=== PATIENT | female | born 1940 | race Caucasian/White ===

== ENCOUNTER 2017-06-09 10:40 | Inpatient (IN) | payer OTHER, MEDICAID ==
--- NOTE | 2017-06-09 11:41 | DR.GENAD ---
HPI - PCP Primary Care Physician: YUAN - Complaint/Symptoms Chief Complaint Doctors Comments: dyspnea this am. Home health found low oxygen sats 70s. Feels better now sats 80s Chief Complaint:: HOSPICE WAS SEEING PATIENT CHECKING VITAL SIGNS AND OXYGEN LEVEL WAS IN THE 70'S TOLD PATIENT TO COME TO ER. Self Treatment fo Chief Complaint: TURN THE OXYGEN UP TO 5 LPM FROM 3 LPM. HAD PAIN MEDS FOR HURTING. MORPHINE, NITRO, AND HYDROCODONE 10/325 MG - Nurses notes reviewed Nurses Notes Review: Yes - Source History Provided: Patient - Mode of Arrival Mode of Arrival: Wheelchair - Timing Onset of Chief Complaint: 06/09/17 Came on: Gradually - Duration Duration: Constant Duration: Hours - Location Location: lungs - Severity Severity: Moderate - Modifying Factors Improves:: oxygen - Associated Signs and Symptoms Associated Signs and Symptoms: cough - Other History Other History: Hospice for pulmonary fibrosis PMH - PMH Past Medical History: Yes Past Medical History: CHF, Coronary Artery Disease, Diabetes, Dyslipidemia, Hypothyroidism, [place] Past Medical History Comment: PULMONARY FIBROSIS Past Surgical History: Yes Surgical History: Angioplasty/Stents, Carotid Endarterectomy, Hysterectomy Past Surgical History Comment: DEFIBALATOR - Family History History of Family Medical Conditions: Yes Family Medical History: Diabetes Mellitus, [place], Heart Failure - Social History Does any household member use tobacco: No Alcohol Use: None Do you use any recreational Drugs:: No Lives With: Family Lives Where: Home - infectious screening In the last 2 months have you had wt loss of >10#?: NO Have you had fever, night sweats or hemotysis?: No Have you traveled outside the country in the last 6 months?: No Isolation: Standard ROS - Review of Systems Constitutional: No Symptoms Reported Eyes: No Symptoms Reported ENTM: No Symptoms Reported Respiratoy: Non-Productive Cough, Short of Breath Cardiovascular: No Symptoms Reported Gastrointestinal/Abdominal: No Symptoms Reported Genitourinary: No Symptoms Reported Neurological: No Symptoms Reported Musculoskeletal: No Symptoms Reported Integumentary: No Symptoms Reported Hematologic/Lymphatic: No Symptoms Reported Endocrine: No Symptoms Reported Psychiatric: No Symptoms Reported All Other Systems: Reviewed and Negative PE - Vital Signs Vitals: Temperature 98.3 F Pulse Rate 114 Respiratory Rate 16 Blood Pressure [Right Calf] 80/60 Blood Pressure [Right Arm] 144/74 Blood Pressure [Left Arm] 114/58 Blood Pressure 129/70 O2 Sat by Pulse Oximetry 84 - General Limitations: No Limitations General Appearance: Alert, In No Apparent Distress - Head Head Exam: Normal Inspection - Eyes Eye exam: Normal Appearance, EOMI. negative: Scleral Icterus, Conjunctival Injection - ENT ENT Exam: Normal Exam - Neck Neck Exam: Normal Inspection, Full ROM, Trachea Midline - Chest Chest Inspection: Normal Inspection - Respiratory Respiratory Exam: negative: Accessory Muscle Use, Prolonged Expiratory Phase Respiratory Exam: Bilateral Crackles - Cardiovascular Cardiovascular Exam: Tachycardia - Abdominal Exam Abdominal Exam: Normal Inspection, Normal Bowel Sounds, Soft - Extremities Extremities Exam: Normal Inspection, Full ROM - Back Back Exam: Normal Inspection - Neurologic Neurological Exam: Alert, Oriented X3, CN II-XII Intact - Psychiatric Psychiatric Exam: Normal Mood - Skin Skin Exam: Intact, Normal Color Course - Consultation Called: 13:00 Call Returned: 13:10 Consultation Comments: case discussed with DR. Yuan garcia in observation, give morphine ROR - Labs Reviewed Result Diagrams: 06/09/17 12:00 06/09/17 12:00 Laboratory: WBC 8.9 X10^3/uL (3.6-10.0) 06/09/17 12:00 RBC 4.46 X10^6/uL (3.5-5.4) 06/09/17 12:00 Hgb 12.3 g/dL (12.0-16.0) 06/09/17 12:00 Hct 38.2 % (36.0-47.0) 06/09/17 12:00 MCV 85.6 fL (80.0-100.0) 06/09/17 12:00 MCH 27.7 pg (27.0-34.0) 06/09/17 12:00 MCHC 32.3 g/dL (33.0-35.0) L 06/09/17 12:00 RDW 14.7 % (11.6-16.5) 06/09/17 12:00 Plt Count 178 X10^3/uL (150.0-450.0) 06/09/17 12:00 MPV 10.2 fL (7.4-11.0) 06/09/17 12:00 Neut % 72.9 % (42.0-75.0) 06/09/17 12:00 Lymph % 15.6 % (21.0-51.0) L 06/09/17 12:00 [place] % 9.2 % (0.0-13.0) 06/09/17 12:00 Eos % 1.5 % (0.9-2.9) 06/09/17 12:00 Baso % 0.8 % (0.2-1.0) 06/09/17 12:00 Neut # 6.5 x10^3/uL (2.2-4.8) H 06/09/17 12:00 Lymph # 1.4 X10^3/uL (1.3-2.9) 06/09/17 12:00 [place] # 0.8 x10^3/uL (0.3-0.8) 06/09/17 12:00 Eos # 0.1 x10^3/uL (0.0-0.2) 06/09/17 12:00 Baso # 0.1 X10^3/uL (0.0-0.1) 06/09/17 12:00 Absolute Nucleated RBC 0.0 /100WBC 06/09/17 12:00 INR Target Range - 06/09/17 12:00 INR 1.05 (0.8-1.3) 06/09/17 12:00 D-Dimer 1040 ng/mL (0-400) H* 06/09/17 12:00 Sodium 142 mmol/L (136-145) 06/09/17 12:00 Corrected Sodium 146 mmol/L (136-145) H 06/09/17 12:00 Potassium 4.0 mmol/L (3.5-5.1) 06/09/17 12:00 Chloride 101 mmol/L (98-107) 06/09/17 12:00 Carbon Dioxide 37.0 mmol/L (21-32) H 06/09/17 12:00 BUN 28 mg/dL (7-18) H 06/09/17 12:00 Creatinine 1.41 mg/dL (0.55-1.02) H 06/09/17 12:00 Est GFR (MDRD) Af Amer 47 (>60) L 06/09/17 12:00 Est GFR (MDRD) Non-Af 38 (>60) L 06/09/17 12:00 Glucose 246 mg/dL (65-99) H 06/09/17 12:00 Calcium 8.7 mg/dL (8.5-10.1) 06/09/17 12:00 Corrected Calcium 9.3 mg/dL (8.5-10.1) 06/09/17 12:00 Total Bilirubin 0.50 mg/dL (0.2-1.0) 06/09/17 12:00 AST 32 Units/L (15-37) 06/09/17 12:00 ALT 24 Units/L (12-78) 06/09/17 12:00 Alkaline Phosphatase 57 Units/L (46-116) 06/09/17 12:00 Creatine Kinase 28 Units/L (26-192) 06/09/17 12:00 CK-MB (CK-2) 1.3 ng/mL (0-4.0) 06/09/17 12:00 CK/CKMB % Calc 4.6 % (<4) 06/09/17 12:00 Troponin I 0.04 ng/mL (0-1.5) 06/09/17 12:00 B-Natriuretic Peptide 684 pg/mL (0-79) H* 06/09/17 12:00 Total Protein 7.4 g/dL (6.4-8.2) 06/09/17 12:00 Albumin 3.2 g/dL (3.4-5.0) L 06/09/17 12:00 Globulin 4.2 g/dL (2.5-4.5) 06/09/17 12:00 Albumin/Globulin Ratio 0.8 Ratio (1.1-2.1) L 06/09/17 12:00 - XRAY XRAY Interpreted by: Radiologist XRAY Findings: chest: increased interstitial markings - EKG Rate: 88 [place]: LAD Rhythm: Paced - Discharge Plan Condition: Stable - Follow ups/Referrals Follow ups/Referrals: Edwin Thompson [Primary Care Provider] - 3 days - Instructions
[2017-06-09] MEDS ORDERED: DUONEB 0.5 MG/3 MG NEB ONE (11:43)
[2017-06-09 12:18] LABS: BASOPHILS # (AUTO) 0.1 X10^3/uL (0.0-0.1); BASOPHILS % (AUTO) 0.8 % (0.2-1.0); EOSINOPHILS # (AUTO) 0.1 x10^3/uL (0.0-0.2); EOSINOPHILS % (AUTO) 1.5 % (0.9-2.9); HEMATOCRIT 38.2 % (36.0-47.0); HEMOGLOBIN 12.3 g/dL (12.0-16.0); LYMPHOCYTES # (AUTO) 1.4 X10^3/uL (1.3-2.9); LYMPHOCYTES % (AUTO) 15.6 % (21.0-51.0); MEAN CORPUSCULAR HEMOGLOBIN 27.7 pg (27.0-34.0); MEAN CORPUSCULAR HGB CONC 32.3 g/dL (33.0-35.0); MEAN CORPUSCULAR VOLUME 85.6 fL (80.0-100.0); MEAN PLATELET VOLUME 10.2 fL (7.4-11.0); MONOCYTES # (AUTO) 0.8 x10^3/uL (0.3-0.8); MONOCYTES % (AUTO) 9.2 % (0.0-13.0); NEUTROPHILS # (AUTO) 6.5 x10^3/uL (2.2-4.8); NEUTROPHILS % (AUTO) 72.9 % (42.0-75.0); PLATELET COUNT 178 X10^3/uL (150.0-450.0); RED BLOOD COUNT 4.46 X10^6/uL (3.5-5.4); RED CELL DISTRIBUTION WIDTH 14.7 % (11.6-16.5); WHITE BLOOD COUNT 8.9 X10^3/uL (3.6-10.0)
[2017-06-09 12:29] LABS: CALCIUM 8.7 mg/dL (8.5-10.1); CREATININE 1.41 mg/dL (0.55-1.02); TROPONIN I 0.04 ng/mL (0-1.5)
--- NOTE | 2017-06-09 12:29 | RAD ---
HISTORY: Shortness of breath Study: Two views of the chest Comparison: January 01, 2017 Findings: The trachea is midline. The cardiac silhouette is enlarged. Increased interstitial markings and mi ld bronchial wall thickening are noted.. IMPRESSION: 1. Cardiomegaly. 2. Increased interstitial markings and mild bronchial wall thickening. Reported By:
[2017-06-09 12:34] LABS: ALBUMIN 3.2 g/dL (3.4-5.0); CKMB % 4.6 % (<4); COR CA(FOR HYPOALB) 9.3 mg/dL (8.5-10.1); CREATINE KINASE MB 1.3 ng/mL (0-4.0); TOTAL PROTEIN 7.4 g/dL (6.4-8.2)
[2017-06-09] MEDS ORDERED: NS 500 ML IV 500 ML IV ONE (12:36)
[2017-06-09] MEDS ORDERED: SOLU-Medrol 125 MG VIAL IVP ONE ×2 (12:42→12:57)
[2017-06-09] MEDS ORDERED: NS 1000 ML 1,000 ML ONE (12:42)
[2017-06-09] MEDS ORDERED: SOLU-Medrol 125 MG VIAL ONE (12:44)
[2017-06-09] MEDS ORDERED: ULTRAM PO PRN (16:05)
[2017-06-09] MEDS: PLAVIX PO SCH (16:44)
[2017-06-09] MEDS: ASPIRIN EC 81 MG PO SCH (16:44)
[2017-06-09] MEDS: K-DUR TAB 20 MEQ PO SCH ×2 (16:44→20:19)
[2017-06-09] MEDS: JANUVIA PO SCH (16:44)
[2017-06-09] MEDS: PREDNISONE TAB 10 MG PO SCH (16:45)
[2017-06-09] MEDS: TRICOR TAB 145 MG PO SCH (16:45)
[2017-06-09] MEDS: HumuLIN R SUBCUT PRN ×2 (16:56→20:19)
[2017-06-09] MEDS ORDERED: PROTONIX TAB 40 MG PO SCH (17:00)
[2017-06-09] MEDS: LASIX PO SCH (20:17)
[2017-06-09] MEDS: NORCO 10/325 TAB PO PRN (20:18)
[2017-06-09] MEDS: SNACK - Diabetic Appropriate PO SCH (20:20)
[2017-06-09] MEDS: MORPHINE SULFATE INJ 2 MG IVP PRN (22:17)
[2017-06-10 05:27] LABS: BASOPHILS % (AUTO) 0.2 % (0.2-1.0); EOSINOPHILS % (AUTO) 0.2 % (0.9-2.9); HEMATOCRIT 35.9 % (36.0-47.0); HEMOGLOBIN 11.6 g/dL (12.0-16.0); LYMPHOCYTES # (AUTO) 2.2 X10^3/uL (1.3-2.9); LYMPHOCYTES % (AUTO) 25.3 % (21.0-51.0); MEAN CORPUSCULAR HEMOGLOBIN 27.8 pg (27.0-34.0); MEAN CORPUSCULAR HGB CONC 32.2 g/dL (33.0-35.0); MEAN CORPUSCULAR VOLUME 86.3 fL (80.0-100.0); MEAN PLATELET VOLUME 10.7 fL (7.4-11.0); MONOCYTES # (AUTO) 1.2 x10^3/uL (0.3-0.8); MONOCYTES % (AUTO) 13.5 % (0.0-13.0); NEUTROPHILS # (AUTO) 5.2 x10^3/uL (2.2-4.8); NEUTROPHILS % (AUTO) 60.8 % (42.0-75.0); PLATELET COUNT 161 X10^3/uL (150.0-450.0); RED BLOOD COUNT 4.16 X10^6/uL (3.5-5.4); RED CELL DISTRIBUTION WIDTH 14.2 % (11.6-16.5); WHITE BLOOD COUNT 8.5 X10^3/uL (3.6-10.0)
[2017-06-10 05:32] LABS: CALCIUM 8.5 mg/dL (8.5-10.1); CARBON DIOXIDE 35.3 mmol/L (21-32); COR CA(FOR HYPOALB) 9.3 mg/dL (8.5-10.1); CREATININE 1.16 mg/dL (0.55-1.02)
[2017-06-10] MEDS: NORCO 10/325 TAB PO PRN ×2 (06:09→18:05)
--- NOTE | 2017-06-10 06:23 | RAD ---
HISTORY: Shortness of breath Study: Chest one view Comparison: June 09, 2017 Findings: There is a pacemaker present in the left axilla. The patient is rotated to the left. The heart is en larged. The brit[place] are prominent and indistinct and the interstitium remains prominent peer E this is suggestive of congestive heart fat in the form of interstitial edema. No acute alveolar infiltrates, alveolar edema, or pleural effusions are identified. The bony thorax is unremarkable. IMPRESSION: Cardiomegaly with congestive heart failure in the form of interstitial edema somewhat more prominent than on the prior examination Reported By:
[2017-06-10 07:25] VITALS: BMI 33.4
[2017-06-10] MEDS: ASPIRIN EC 81 MG PO SCH (08:47)
[2017-06-10] MEDS: PROTONIX TAB 40 MG PO SCH (08:47)
[2017-06-10] MEDS: LASIX PO SCH (08:47)
[2017-06-10] MEDS: TRICOR TAB 145 MG PO SCH (08:47)
[2017-06-10] MEDS: K-DUR TAB 20 MEQ PO SCH ×2 (08:47→21:35)
[2017-06-10] MEDS: JANUVIA PO SCH (08:48)
[2017-06-10] MEDS: PREDNISONE TAB 10 MG PO SCH (08:48)
[2017-06-10] MEDS: PLAVIX PO SCH (08:49)
[2017-06-10] MEDS ORDERED: LASIX IVP SCH (10:00)
--- NOTE | 2017-06-10 11:36 | DR.H&P ---
H&P - History & Physical for Day of: H&P Date: 06/09/17 - Chief Complaint Chief Complaint: Shortness of breath - Allergies Allergies/Adverse Reactions: Allergies Allergy/AdvReac Type Severity Reaction Status Date / Time acetaminophen Allergy Verified 06/09/17 17:19 [From Darvocet-N] celecoxib [From Celebrex] Allergy Verified 06/09/17 17:20 eptifibatide Allergy Verified 06/09/17 17:19 [From Integrilin] propoxyphene Allergy Verified 06/09/17 17:19 [From Darvocet-N] simvastatin [From Zocor] Allergy Verified 06/09/17 17:20 - History of Present Illness History of Present Illness: Ms. Muller is a 76 year old patient of ours who presented to the emergency room with complaints of shortness of breath. Family reports that the hospice nurse was at their home visiting patient and checked her oxygen saturation, which was noted to be in the 70s, despite being on home oxygen at 3LPM. After increasing oxygen to 5LPM, saturations only increased to the 80s. Patient is currently being treated under hospice for pulmonary fibrosis. Patients baseline oxygen saturation is usually between 92-95% on 4LPM nasal cannula. Patient reports that she is having neck pain and that she has been taking Morphine, Nitro and Hydrocodone for pain, with no improvement in symptoms. Associated symptoms include non-productive cough, shortness of breath, and pain. Bilateral wheezing and crackles are noted in bilateral lung borjas on auscultation. On arrival to er, vitals were 98.3, 114, 16, 84%NC 5LPM , 129/70. Abnormal Labs include MCHC 32.3, Lymph% 15.6, Neut# 6.5, Ddimer 1040, Corrected Sodium 146, Carbon Dioxide 37.0, BUN 28, Creatinine 1.41, GFR(AA) 47, GFR(non) 38, Glucose 246, BNP 684, Albumin 3.2, A/G Ratio 0.8. D-dimer is noted to be critically high at 1040. BNP is noted to be critically high at 684. Chest xray reports cardiomegaly, Increased interstitial markings and mild bronchial wall thickening. EKG reported Atrial sensed ventricular paced rhythm with heart rate of 88. We admitted patient for further treatment and evaluation. She was started on [place] 10/325mg 1tab po q4hour PRN pain, Aspirin 81mg po daily, Plavix 75mg po daily, Tricor 145mg po daily, Humulin R sliding scale ACHS PRN hyperglycemia, OTBS ACHS, Morphine Sulfate 1-2mg IV q2hour PRN severe pain, KDur 20meq po BID, Prednisone 10mg po daily, Januvia 100mg po daily, Ultram 50mg po q6hour PRN moderate pain, Lasix 40mg po BID, Protonix 40mg po daily. We planned to recheck labs and xray and follow up with patient in am. - Past Medical History Past Medical History: Anemia, Anxiety, Arthritis, CHF, Coronary Artery Disease, Depression, Diabetes, Dyslipidemia, GERD, Hypothyroidism, [place] Additional Medical History: pulmonary fibrosis - Past Surgical History Surgical History: Angioplasty/Stents, Carotid Endarterectomy, Hysterectomy - Family History Family Medical History: Diabetes Mellitus, [place], Heart Failure - Social History Does patient currently use any type of tobacco product: No Have you used tobacco products in the last 12 months: No Type of Tobacco Use: Cigarettes How many years tobacco product used: 54 Does any household member use tobacco: Yes (DAUGHTER) Alcohol Use: None Drug Use: Prescription Drugs - Medications Home Medications: Furosemide [LASIX TAB 40 MG *] 1 tab PO BID 06/09/17 [History Confirmed 06/09/17 ] Hydrocodone/Acetaminophen [Hydrocodon-Acetaminophn 10-325] 1 tab PO Q4H PRN [History Confirmed 06/09/17] Misc Home Med [Patient's Home Medication] 1 unit SC PRN PRN 06/09/17 [History Confirmed 06/09/17] Morphine Sulf Oral Soln [ROXANOL ORAL SOLN 20 MG/ML (30ML btl) *] 0.25 - 1 ml PO Q2H PRN 06/09/17 [History Confirmed 06/09/17] Pantoprazole Sodium 40 mg [PROTONIX 40 MG *] 1 mg PO DAILY 06/09/17 [History Confirmed 06/09/17] Potassium Chloride [K-DUR TAB 20 mEq *] 1 tab PO BID 06/09/17 [History Confirmed 06/09/17] Prednisone [PREDNISONE TAB 10 MG *] 1 tab PO DAILY 06/09/17 [History Confirmed 06/09/17] Sitagliptin Phosphate [JANUVIA 100 MG *] 1 tab PO DAILY 06/09/17 [History Confirmed 06/09/17] Tramadol HCl 1 tab PO Q6H PRN 06/09/17 [History Confirmed 06/09/17] - Review of Systems Constitutional: Weakness. denies: No Symptoms Reported, See HPI, Fever, Chills , Sweats, Malaise, Other Eyes: No Symptoms Reported. denies: See HPI, Pain, Vision Change, Conjunctivae Inflammation, Eyelid Inflammation, Redness, Other ENT: No Symptoms Reported. denies: See HPI, Ear Pain, Ear Discharge, Nose Pain , Nose Discharge, Nose Congestion, Mouth Pain, Mouth Swelling, Throat Pain, Throat Swelling, Other Respiratory: Cough, Shortness of Breath, Wheezing. denies: No Symptoms Reported , See HPI, Dry, Hemoptysis, SOB with Excertion, Pleuritic Pain, Sputum, Other Cardiovascular: No Symptoms Reported. denies: Chest Pain, See HPI, Palpitations , Orthopnea, Paroxysmal Noc. Dyspnea, Edema, Light Headedness, Other Gastrointestinal: No Symptoms Reported. denies: See HPI, Nausea, Vomiting, Abdominal Pain, Diarrhea, Constipation, Melena, Hematochezia, Other Genitourinary: No Symptoms Reported. denies: See HPI, Dysuria, Frequency, Incontinence, Hematuria, Retention, Other Musculoskeletal: See HPI, Neck Pain. denies: No Symptoms Reported, Shoulder Pain, Arm Pain, Back Pain, Hand Pain, Leg Pain, Foot Pain, Other Skin: No Symptoms Reported. denies: See HPI, Rash, Lesions, Jaundice, Bruising , Wound, Ecchymosis, Other Neurological: Weakness. denies: No Symptoms Reported, See HPI, Numbness, Incoordination, Change in Speech, Confusion, Seizures, Other - Physical Exam Vital Signs: Temperature 98.6 F Pulse Rate [Left Radial] 102 Respiratory Rate 20 Blood Pressure [Right Arm] 145/82 O2 Sat by Pulse Oximetry 98 Oriented: Normal. negative: Time, Person, Place, Not Oriented, Unable to test, Other Eyes: Normal. negative: Blurred Vision, Diplopia, Discharge, Pain, Redness, Photophobia, Other Ear: Normal. negative: Right, Left, Swelling, Ecchymosis, Hemotypanum, Abrasion , Laceration Nose: Normal. negative: Injected, Discharge, Blood, Other Throat: Normal. negative: Tonsillar Hypertrophy, Red, Exudate, Dry, Other Respiratory: Diminished Throughout, Wheezes Throughout. negative: Clear Throughout, Rhonchi Throughout, Rales Throughout, RUL Clear, RML Clear, RLL Clear, [place] Clear, LML Clear, LLL Clear, RUL Diminished, RML Diminished, RLL Diminished, [place] Diminished, LML Diminished, LLL Diminished, RUL Absent, RML Absent, RLL Absent, [place] Absent, LML Absent, LLL Absent, RUL Rhonchi, RML Rhonchi , RLL Rhonchi, [place]LA Rhonchi, LML Rhonchi, LLL Rhonchi, RUL Insp. Wheeze, RML Insp. Wheeze, RLL Insp. Wheeze, [place] Insp.Wheeze, LML Insp.Wheeze, LLL Insp.Wheeze, RUL Exp. Wheeze, RML Exp. Wheeze, RLL Exp. Wheeze, [place] Exp. Wheeze , LML Exp. Wheeze, LLL Exp. Wheeze, RUL Rales, RML Rales, RLL Rales, [place]LA Rales, LML Rales, LLL Rales, RUL Rub, RML Rub, RLL Rub, [place] Rub, LML Rub, LLL Rub, RUL Squeak, RML Squeak, RLL Squeak, NYLA Squeak, LML Squeak, LLL Squeak Cardiovascular: Tachycardia. negative: Normal, Bradycardia, Irregular, S3, S4, Systolic, Diastolic, Murmur, Edema, Other : Normal. negative: Dysuria, Hematuria, Frequency, Discharge, Testicular Pain , Bleeding, , Other Auscultation: Bowel Sounds: Normal. negative: Bruit, Absent, Increased, Decreased, High Pitched, Other Palpation: Normal. negative: Spleen Enlarged, Liver Enlarged, Mass Pulsatile, Other Tenderness: Normal. negative: Diffuse, RUQ, RLQ, LUQ, LLQ, Epigastric, Periumbilical, Suprapubic, Mild, Moderate, Severe, Rebound, Guarding, Rigidity, Other Skin: Normal. negative: Decreased Turgur, Rash, Papular, Macular, Maculopapular , Vesicular, Pustular, Petechial, Red, Tender, Hot, Diaphoresis, Wound, Bruising , Ecchymosis, Other Musculoskeletal: Normal. negative: Right, Left, Shoulder, Clavicle, Arm, Elbow , Forearm, Wrist, Hand, Hip, Thigh, Knee, Leg, Ankle, Foot, Back:Thoracic, Back: Lumbar, Back:Midline, Back:Paraspinous, Pelvis, Swelling, Tender, Deformity, Pulse Deficit, Motor Deficit, Sensory Deficit, Instability, Crepitance Psychiatric: Normal. negative: Anxiety, Depression, Agitation, Other Mood Description: Calm. negative: Angry, Apathetic, Depressed, Fearful, Flat, Happy, Hostile, Sad, Suspicious, Withdrawn, Anxious, Appropriate, Labile Affect: Normal. negative: Angry, Anxious, Depressed, Flat, Hysterical, Quiet, Violent Speech Pattern: Clear - Assessment/Plan (1) Acute on chronic systolic (congestive) heart failure Status: Acute Plan: LASIX 40MG IV BID, DUONEB TX, CONTINUE TO MONITOR LABS AND CHEST XRAY (2) Pulmonary fibrosis Status: Chronic Plan: CONTINUE PREDNISONE, CONTINUE TO MONITOR
[2017-06-10] MEDS: HumuLIN R SUBCUT PRN ×3 (12:35→21:40)
[2017-06-10] MEDS: DUONEB 0.5 MG/3 MG NEB SCH ×2 (13:54→17:04)
[2017-06-10] MEDS: MORPHINE SULFATE INJ 2 MG IVP PRN ×2 (16:00→21:35)
--- NOTE | 2017-06-10 16:39 | PCM.PROG ---
Progress Note - Progress Note for Day of Date: 06/10/17 - Subjective Subjective: IS ALERT AND ORIENTED ON MORNING ROUNDS. SHE IS SITTING UP ON THE SIDE OF BED WITH FAMILY AT BEDSIDE. SHE CONTINUES WITH COMPLAINTS OF SHORTNESS OF BREATH AND WEAKNESS. BILATERAL LUNG JEROME ARE NOTED WITH FINE INSPIRATORY RALES. BILATERAL LOWER EXTREMITIES NOTED WITH PITTING EDEMA. VITALS THIS AM ARE 97.6-97-20-98%-133/91. CBC WNL EXCEPT HGB 11.6, HCT 35.9. CMP WNL EXCEPT CARBON DIOXIDE 35.3, BUN 24, CREATININE 1.16, GLUCOSE 124, ALBUMIN 3.0. CHEST XRAY REPORTS CARDIOMEGALY WITH CHF IN THE FORM OF INTERSTITUAL EDEMA. WE ASKED PATIENT IF SHE WOULD BE COOPERATIVE WITH WEARING BIPAP AT NIGHT. PATIENT REPORTS THAT SHE IS UNABLE TO SLEEP WHEN SHE TRIES TO WEART A BIPAP OR CPAP AT NIGHT. WE WILL START KLONOPIN 1MG HS, ORDER FLUID RESTRICTION LESS THAN 1,000CC/ DAY, AND START BIPAP AT HS. WE PLAN TO RECHECK LABS AND FOLLOW UP WITH PATIENT IN AM. - Past Medical Family Social History Past Med/Fam/Surg Hx: No changes since H&P Allergies: Allergies acetaminophen [From Darvocet-N] Allergy (Verified 06/09/17 17:19) celecoxib [From Celebrex] Allergy (Verified 06/09/17 17:20) eptifibatide [From Integrilin] Allergy (Verified 06/09/17 17:19) propoxyphene [From Darvocet-N] Allergy (Verified 06/09/17 17:19) simvastatin [From Zocor] Allergy (Verified 06/09/17 17:20) - Review of Systems ROS: No change since H&P - Vital Signs and I&O's Vital Signs: Temperature 97.4 F Pulse Rate [Left Radial] 98 Pulse Rate 109 Respiratory Rate 22 Blood Pressure [Right Arm] 125/60 O2 Sat by Pulse Oximetry 98 Intake and Output: Intake & Output 06/08/17 06/09/17 06/10/17 06/11/17 11:59 11:59 11:59 11:59 Intake Total 20 650 Output Total 0 3 Balance 20 647 - Physical Exam Oriented: Normal. negative: Time, Person, Place, Not Oriented, Unable to test, Other Eyes: Normal. negative: Blurred Vision, Diplopia, Discharge, Pain, Redness, Photophobia, Other Ear: Normal. negative: Right, Left, Swelling, Ecchymosis, Hemotypanum, Abrasion , Laceration Nose: Normal. negative: Injected, Discharge, Blood, Other Throat: Normal. negative: Tonsillar Hypertrophy, Red, Exudate, Dry, Other Respiratory: Right, Left, Diminished, Rales Cardiovascular: Tachycardia. negative: Normal, Bradycardia, Irregular, S3, S4, Systolic, Diastolic, Murmur, Edema, Other : Normal. negative: Dysuria, Hematuria, Frequency, Discharge, Testicular Pain , Bleeding, , Other Auscultation: Bowel Sounds: Normal. negative: Bruit, Absent, Increased, Decreased, High Pitched, Other Palpation: Normal Tenderness: Normal. negative: Diffuse, RUQ, RLQ, LUQ, LLQ, Epigastric, Periumbilical, Suprapubic, Mild, Moderate, Severe, Rebound, Guarding, Rigidity, Other Skin: Normal. negative: Decreased Turgur, Rash, Papular, Macular, Maculopapular , Vesicular, Pustular, Petechial, Red, Tender, Hot, Diaphoresis, Wound, Bruising , Ecchymosis, Other Musculoskeletal: Normal. negative: Right, Left, Shoulder, Clavicle, Arm, Elbow , Forearm, Wrist, Hand, Hip, Thigh, Knee, Leg, Ankle, Foot, Back:Thoracic, Back: Lumbar, Back:Midline, Back:Paraspinous, Pelvis, Swelling, Tender, Deformity, Pulse Deficit, Motor Deficit, Sensory Deficit, Instability, Crepitance Psychiatric: Normal. negative: Anxiety, Depression, Agitation, Other Mood Description: Calm. negative: Angry, Apathetic, Depressed, Fearful, Flat, Happy, Hostile, Sad, Suspicious, Withdrawn, Anxious, Appropriate, Labile Affect: Normal. negative: Angry, Anxious, Depressed, Flat, Hysterical, Quiet, Violent Speech Pattern: Clear - Laboratory and Diagnostics Result Diagrams: 06/10/17 03:31 06/10/17 03:31 Labs: Laboratory WBC 8.5 X10^3/uL (3.6-10.0) 06/10/17 03:31 RBC 4.16 X10^6/uL (3.5-5.4) 06/10/17 03:31 Hgb 11.6 g/dL (12.0-16.0) L 06/10/17 03:31 Hct 35.9 % (36.0-47.0) L 06/10/17 03:31 MCV 86.3 fL (80.0-100.0) 06/10/17 03:31 MCH 27.8 pg (27.0-34.0) 06/10/17 03:31 MCHC 32.2 g/dL (33.0-35.0) L 06/10/17 03:31 RDW 14.2 % (11.6-16.5) 06/10/17 03:31 Plt Count 161 X10^3/uL (150.0-450.0) 06/10/17 03:31 MPV 10.7 fL (7.4-11.0) 06/10/17 03:31 Neut % 60.8 % (42.0-75.0) 06/10/17 03:31 Lymph % 25.3 % (21.0-51.0) 06/10/17 03:31 [place] % 13.5 % (0.0-13.0) H 06/10/17 03:31 Eos % 0.2 % (0.9-2.9) L 06/10/17 03:31 Baso % 0.2 % (0.2-1.0) 06/10/17 03:31 Neut # 5.2 x10^3/uL (2.2-4.8) H 06/10/17 03:31 Lymph # 2.2 X10^3/uL (1.3-2.9) 06/10/17 03:31 [place] # 1.2 x10^3/uL (0.3-0.8) H 06/10/17 03:31 Eos # 0.0 x10^3/uL (0.0-0.2) 06/10/17 03:31 Baso # 0.0 X10^3/uL (0.0-0.1) 06/10/17 03:31 Absolute Nucleated RBC 0.2 /100WBC 06/10/17 03:31 INR Target Range - 06/09/17 12:00 INR 1.05 (0.8-1.3) 06/09/17 12:00 D-Dimer 1040 ng/mL (0-400) H* 06/09/17 12:00 Sodium 143 mmol/L (136-145) 06/10/17 03:31 Corrected Sodium 144 mmol/L (136-145) 06/10/17 03:31 Potassium 4.3 mmol/L (3.5-5.1) 06/10/17 03:31 Chloride 104 mmol/L (98-107) 06/10/17 03:31 Carbon Dioxide 35.3 mmol/L (21-32) H 06/10/17 03:31 BUN 24 mg/dL (7-18) H 06/10/17 03:31 Creatinine 1.16 mg/dL (0.55-1.02) H 06/10/17 03:31 Est GFR (MDRD) Af Amer 58 (>60) L 06/10/17 03:31 Est GFR (MDRD) Non-Af 48 (>60) L 06/10/17 03:31 Glucose 124 mg/dL (65-99) H 06/10/17 03:31 Calcium 8.5 mg/dL (8.5-10.1) 06/10/17 03:31 Corrected Calcium 9.3 mg/dL (8.5-10.1) 06/10/17 03:31 Total Bilirubin 0.30 mg/dL (0.2-1.0) 06/10/17 03:31 AST 31 Units/L (15-37) 06/10/17 03:31 ALT 23 Units/L (12-78) 06/10/17 03:31 Alkaline Phosphatase 64 Units/L (46-116) 06/10/17 03:31 Creatine Kinase 28 Units/L (26-192) 06/09/17 12:00 CK-MB (CK-2) 1.3 ng/mL (0-4.0) 06/09/17 12:00 CK/CKMB % Calc 4.6 % (<4) 06/09/17 12:00 Troponin I 0.04 ng/mL (0-1.5) 06/09/17 12:00 B-Natriuretic Peptide 684 pg/mL (0-79) H* 06/09/17 12:00 Total Protein 7.0 g/dL (6.4-8.2) 06/10/17 03:31 Albumin 3.0 g/dL (3.4-5.0) L 06/10/17 03:31 Globulin 4.0 g/dL (2.5-4.5) 06/10/17 03:31 Albumin/Globulin Ratio 0.8 Ratio (1.1-2.1) L 06/10/17 03:31 - Plan (1) Acute on chronic systolic (congestive) heart failure Status: Acute Plan: LASIX 40MG IV BID, DUONEB TX, CONTINUE TO MONITOR LABS AND CHEST XRAY (2) Pulmonary fibrosis Status: Chronic Plan: CONTINUE PREDNISONE, CONTINUE TO MONITOR
[2017-06-10] MEDS: SNACK - Diabetic Appropriate PO SCH (20:08)
[2017-06-10] MEDS: XOPENEX 1.25 MG/3 ML NEBULE NEB SCH (20:48)
[2017-06-10] MEDS: KLONOPIN TAB 1 MG PO SCH (21:35)
[2017-06-10] MEDS: LASIX IVP SCH (21:37)
[2017-06-11 06:06] LABS: ALBUMIN 2.8 g/dL (3.4-5.0); CALCIUM 8.2 mg/dL (8.5-10.1); CARBON DIOXIDE 34.5 mmol/L (21-32); COR CA(FOR HYPOALB) 9.2 mg/dL (8.5-10.1); CREATININE 1.3 mg/dL (0.55-1.02); TOTAL PROTEIN 6.6 g/dL (6.4-8.2)
[2017-06-11 06:14] LABS: BASOPHILS % (AUTO) 0.3 % (0.2-1.0); EOSINOPHILS # (AUTO) 0.2 x10^3/uL (0.0-0.2); EOSINOPHILS % (AUTO) 1.9 % (0.9-2.9); HEMATOCRIT 34.9 % (36.0-47.0); HEMOGLOBIN 11.3 g/dL (12.0-16.0); LYMPHOCYTES # (AUTO) 3.5 X10^3/uL (1.3-2.9); LYMPHOCYTES % (AUTO) 35.5 % (21.0-51.0); MEAN CORPUSCULAR HGB CONC 32.3 g/dL (33.0-35.0); MEAN CORPUSCULAR VOLUME 86.6 fL (80.0-100.0); MEAN PLATELET VOLUME 10.8 fL (7.4-11.0); MONOCYTES # (AUTO) 1.2 x10^3/uL (0.3-0.8); MONOCYTES % (AUTO) 12.2 % (0.0-13.0); NEUTROPHILS % (AUTO) 50.1 % (42.0-75.0); PLATELET COUNT 158 X10^3/uL (150.0-450.0); RED BLOOD COUNT 4.03 X10^6/uL (3.5-5.4); RED CELL DISTRIBUTION WIDTH 15.1 % (11.6-16.5); WHITE BLOOD COUNT 9.9 X10^3/uL (3.6-10.0)
[2017-06-11] MEDS: K-DUR TAB 20 MEQ PO SCH ×2 (08:34→21:36)
[2017-06-11] MEDS: PROTONIX TAB 40 MG PO SCH (08:34)
[2017-06-11] MEDS: ASPIRIN EC 81 MG PO SCH (08:34)
[2017-06-11] MEDS: TRICOR TAB 145 MG PO SCH (08:34)
[2017-06-11] MEDS: LASIX IVP SCH ×2 (08:35→16:33)
[2017-06-11] MEDS: PREDNISONE TAB 10 MG PO SCH (08:35)
[2017-06-11] MEDS: JANUVIA PO SCH (08:35)
[2017-06-11] MEDS: PLAVIX PO SCH (08:35)
[2017-06-11] MEDS: NORCO 10/325 TAB PO PRN (08:38)
[2017-06-11] MEDS: XOPENEX 1.25 MG/3 ML NEBULE NEB SCH ×4 (09:26→20:49)
--- NOTE | 2017-06-11 11:27 | PCM.PROG ---
Progress Note - Progress Note for Day of Date: 06/11/17 - Subjective Subjective: IS ALERT AND ORIENTED ON MORNING ROUNDS. SHE IS SITTING UP ON THE SIDE OF BED WITH FAMILY AT BEDSIDE. SHE CONTINUES WITH FINE INSPIRATORY RALES TO AUSCULTATION. BILATERAL LOWER EXTREMITIES CONTINUE WITH EDEMA. VITALS THIS AM ARE 98.4-74-14-97%-141/82. CBC WNL EXCEPT HGB 11.3, HCT 34.9. CMP WNL EXCEPT CARBON DIOXIDE 34.5, BUN 24, CREATININE 1.30, GLUCOSE 120, AST 38 ALBUMIN 2.8, BNP 678. STAFF REPORTS THAT PATIENT REFUSED PM DOSE OF LASIX DUE TO HAVING TO GET UP AND DOWN TOO MUCH AT NIGHT TO URINATE. WE WILL CHANGE TIMES OF LASIX TO 7AM AND 5PM. WE WILL CONTINUE WITH CURRENT PLAN OF CARE AND PLAN TO RECHECK LABS AND FOLLOW UP WITH PATIENT IN AM. - Past Medical Family Social History Past Med/Fam/Surg Hx: No changes since H&P Allergies: Allergies acetaminophen [From Darvocet-N] Allergy (Verified 06/09/17 17:19) celecoxib [From Celebrex] Allergy (Verified 06/09/17 17:20) eptifibatide [From Integrilin] Allergy (Verified 06/09/17 17:19) propoxyphene [From Darvocet-N] Allergy (Verified 06/09/17 17:19) simvastatin [From Zocor] Allergy (Verified 06/09/17 17:20) - Review of Systems ROS: No change since H&P - Vital Signs and I&O's Vital Signs: Temperature 97.9 F Pulse Rate [Left Radial] 96 Pulse Rate 50 Respiratory Rate 20 Blood Pressure [Right Arm] 105/64 Blood Pressure [Left Arm] 109/65 O2 Sat by Pulse Oximetry 92 Intake and Output: Intake & Output 06/08/17 06/09/17 06/10/17 06/11/17 11:59 11:59 11:59 11:59 Intake Total 20 1090 Output Total 0 3 Balance 20 1087 - Physical Exam Oriented: Normal. negative: Time, Person, Place, Not Oriented, Unable to test, Other Eyes: Normal. negative: Blurred Vision, Diplopia, Discharge, Pain, Redness, Photophobia, Other Ear: Normal. negative: Right, Left, Swelling, Ecchymosis, Hemotypanum, Abrasion , Laceration Nose: Normal. negative: Injected, Discharge, Blood, Other Throat: Normal. negative: Tonsillar Hypertrophy, Red, Exudate, Dry, Other Respiratory: Right, Left, Diminished, Rales Cardiovascular: Tachycardia. negative: Normal, Bradycardia, Irregular, S3, S4, Systolic, Diastolic, Murmur, Edema, Other : Normal. negative: Dysuria, Hematuria, Frequency, Discharge, Testicular Pain , Bleeding, , Other Auscultation: Bowel Sounds: Normal. negative: Bruit, Absent, Increased, Decreased, High Pitched, Other Palpation: Normal Tenderness: Normal. negative: Diffuse, RUQ, RLQ, LUQ, LLQ, Epigastric, Periumbilical, Suprapubic, Mild, Moderate, Severe, Rebound, Guarding, Rigidity, Other Skin: Normal. negative: Decreased Turgur, Rash, Papular, Macular, Maculopapular , Vesicular, Pustular, Petechial, Red, Tender, Hot, Diaphoresis, Wound, Bruising , Ecchymosis, Other Musculoskeletal: Normal. negative: Right, Left, Shoulder, Clavicle, Arm, Elbow , Forearm, Wrist, Hand, Hip, Thigh, Knee, Leg, Ankle, Foot, Back:Thoracic, Back: Lumbar, Back:Midline, Back:Paraspinous, Pelvis, Swelling, Tender, Deformity, Pulse Deficit, Motor Deficit, Sensory Deficit, Instability, Crepitance Psychiatric: Normal. negative: Anxiety, Depression, Agitation, Other Mood Description: Calm. negative: Angry, Apathetic, Depressed, Fearful, Flat, Happy, Hostile, Sad, Suspicious, Withdrawn, Anxious, Appropriate, Labile Affect: Normal. negative: Angry, Anxious, Depressed, Flat, Hysterical, Quiet, Violent Speech Pattern: Clear, Appropriate - Laboratory and Diagnostics Result Diagrams: 06/11/17 04:41 06/11/17 04:41 Labs: Laboratory WBC 9.9 X10^3/uL (3.6-10.0) 06/11/17 04:41 RBC 4.03 X10^6/uL (3.5-5.4) 06/11/17 04:41 Hgb 11.3 g/dL (12.0-16.0) L 06/11/17 04:41 Hct 34.9 % (36.0-47.0) L 06/11/17 04:41 MCV 86.6 fL (80.0-100.0) 06/11/17 04:41 MCH 28.0 pg (27.0-34.0) 06/11/17 04:41 MCHC 32.3 g/dL (33.0-35.0) L 06/11/17 04:41 RDW 15.1 % (11.6-16.5) 06/11/17 04:41 Plt Count 158 X10^3/uL (150.0-450.0) 06/11/17 04:41 MPV 10.8 fL (7.4-11.0) 06/11/17 04:41 Neut % 50.1 % (42.0-75.0) 06/11/17 04:41 Lymph % 35.5 % (21.0-51.0) 06/11/17 04:41 [place] % 12.2 % (0.0-13.0) 06/11/17 04:41 Eos % 1.9 % (0.9-2.9) 06/11/17 04:41 Baso % 0.3 % (0.2-1.0) 06/11/17 04:41 Neut # 5.0 x10^3/uL (2.2-4.8) H 06/11/17 04:41 Lymph # 3.5 X10^3/uL (1.3-2.9) H 06/11/17 04:41 [place] # 1.2 x10^3/uL (0.3-0.8) H 06/11/17 04:41 Eos # 0.2 x10^3/uL (0.0-0.2) 06/11/17 04:41 Baso # 0.0 X10^3/uL (0.0-0.1) 06/11/17 04:41 Absolute Nucleated RBC 0.1 /100WBC 06/11/17 04:41 INR Target Range - 06/09/17 12:00 INR 1.05 (0.8-1.3) 06/09/17 12:00 D-Dimer 1040 ng/mL (0-400) H* 06/09/17 12:00 Sodium 144 mmol/L (136-145) 06/11/17 04:41 Corrected Sodium 144 mmol/L (136-145) 06/11/17 04:41 Potassium 4.0 mmol/L (3.5-5.1) 06/11/17 04:41 Chloride 105 mmol/L (98-107) 06/11/17 04:41 Carbon Dioxide 34.5 mmol/L (21-32) H 06/11/17 04:41 BUN 24 mg/dL (7-18) H 06/11/17 04:41 Creatinine 1.30 mg/dL (0.55-1.02) H 06/11/17 04:41 Est GFR (MDRD) Af Amer 51 (>60) L 06/11/17 04:41 Est GFR (MDRD) Non-Af 42 (>60) L 06/11/17 04:41 Glucose 120 mg/dL (65-99) H 06/11/17 04:41 Calcium 8.2 mg/dL (8.5-10.1) L 06/11/17 04:41 Corrected Calcium 9.2 mg/dL (8.5-10.1) 06/11/17 04:41 Total Bilirubin 0.40 mg/dL (0.2-1.0) 06/11/17 04:41 AST 38 Units/L (15-37) H 06/11/17 04:41 ALT 22 Units/L (12-78) 06/11/17 04:41 Alkaline Phosphatase 65 Units/L (46-116) 06/11/17 04:41 Creatine Kinase 28 Units/L (26-192) 06/09/17 12:00 CK-MB (CK-2) 1.3 ng/mL (0-4.0) 06/09/17 12:00 CK/CKMB % Calc 4.6 % (<4) 06/09/17 12:00 Troponin I 0.04 ng/mL (0-1.5) 06/09/17 12:00 B-Natriuretic Peptide 678 pg/mL (0-79) H* 06/11/17 04:41 Total Protein 6.6 g/dL (6.4-8.2) 06/11/17 04:41 Albumin 2.8 g/dL (3.4-5.0) L 06/11/17 04:41 Globulin 3.8 g/dL (2.5-4.5) 06/11/17 04:41 Albumin/Globulin Ratio 0.7 Ratio (1.1-2.1) L 06/11/17 04:41 - Plan (1) Acute on chronic systolic (congestive) heart failure Status: Acute Plan: LASIX 40MG IV BID, DUONEB TX, CONTINUE TO MONITOR LABS AND CHEST XRAY (2) Pulmonary fibrosis Status: Chronic Plan: CONTINUE PREDNISONE, CONTINUE TO MONITOR (3) Hyperlipemia Status: Chronic Qualifiers: Hyperlipidemia type: mixed hyperlipidemia Qualified Code(s): E78.2 - Mixed hyperlipidemia Plan: CONTINUE TRICOR, CONTINUE TO MONITOR (4) CAD (coronary artery disease) Status: Chronic Qualifiers: Coronary Disease-Associated Artery/Lesion type: [place] artery [place] vs. transplanted heart: [place] heart Associated angina: angina presence unspecified Qualified Code(s): I25.10 - Atherosclerotic heart disease of [place] coronary artery without angina pectoris Plan: CONTINUE PLAVIX, CONTINUE TO MONITOR (5) Diabetes mellitus Status: Chronic Qualifiers: Diabetes mellitus complication status: with unspecified complications Diabetes mellitus complication detail: D Diabetic retinopathy severity: D Proliferative retinopathy type: P Diabetes mellitus macular edema: D Diabetes mellitus penitentiary insulin use: D Laterality: L Chronic kidney disease stage: C Plan: CONTINUE JANUVIA, CONTINUE TO MONITOR (6) GERD (gastroesophageal reflux disease) Status: Chronic Qualifiers: Esophagitis presence: esophagitis presence not specified Qualified Code(s) : K21.9 - Gastro-esophageal reflux disease without esophagitis Plan: CONTINUE PROTONIX, CONTINUE TO MONITOR
[2017-06-11] MEDS: HumuLIN R SUBCUT PRN (16:33)
[2017-06-11] MEDS: SNACK - Diabetic Appropriate PO SCH (21:36)
[2017-06-11] MEDS: KLONOPIN TAB 1 MG PO SCH (21:37)
[2017-06-12] MEDS: NORCO 10/325 TAB PO PRN ×3 (00:20→20:32)
[2017-06-12 05:39] LABS: ALBUMIN 2.7 g/dL (3.4-5.0); CALCIUM 8.1 mg/dL (8.5-10.1); CARBON DIOXIDE 36.2 mmol/L (21-32); COR CA(FOR HYPOALB) 9.1 mg/dL (8.5-10.1); CREATININE 1.16 mg/dL (0.55-1.02); TOTAL PROTEIN 6.2 g/dL (6.4-8.2)
[2017-06-12 05:43] LABS: BASOPHILS % (AUTO) 0.4 % (0.2-1.0); EOSINOPHILS # (AUTO) 0.2 x10^3/uL (0.0-0.2); EOSINOPHILS % (AUTO) 2.6 % (0.9-2.9); HEMATOCRIT 33.9 % (36.0-47.0); LYMPHOCYTES # (AUTO) 3.3 X10^3/uL (1.3-2.9); LYMPHOCYTES % (AUTO) 36.3 % (21.0-51.0); MEAN CORPUSCULAR HEMOGLOBIN 27.9 pg (27.0-34.0); MEAN CORPUSCULAR HGB CONC 32.3 g/dL (33.0-35.0); MEAN CORPUSCULAR VOLUME 86.4 fL (80.0-100.0); MEAN PLATELET VOLUME 10.6 fL (7.4-11.0); MONOCYTES % (AUTO) 11.4 % (0.0-13.0); NEUTROPHILS # (AUTO) 4.5 x10^3/uL (2.2-4.8); NEUTROPHILS % (AUTO) 49.3 % (42.0-75.0); PLATELET COUNT 144 X10^3/uL (150.0-450.0); RED BLOOD COUNT 3.93 X10^6/uL (3.5-5.4); RED CELL DISTRIBUTION WIDTH 14.7 % (11.6-16.5); WHITE BLOOD COUNT 9.1 X10^3/uL (3.6-10.0)
[2017-06-12] MEDS: LASIX IVP SCH ×2 (06:04→17:29)
--- NOTE | 2017-06-12 08:09 | RAD ---
HISTORY: Shortness of breath Study: Single-view chest, done portably Comparison: June 11, 2017 Findings: Left-sided pacemaker/defibrillator is present with intact leads. Trachea is midline. There is cardio megaly with aortic uncoiling, pulmonary vascular congestion and signs of CHF. Small focus of edema o r infiltrate is present in the right costophrenic angle. No pleural fluid or pneumothorax is seen. O sseous structures are intact. IMPRESSION: Findings again compatible with CHF. A small focus of edema or infiltrate is present in the right cos tophrenic angle. Reported By:
[2017-06-12] MEDS: TRICOR TAB 145 MG PO SCH (09:38)
[2017-06-12] MEDS: PREDNISONE TAB 10 MG PO SCH (09:38)
[2017-06-12] MEDS: JANUVIA PO SCH (09:38)
[2017-06-12] MEDS: PROTONIX TAB 40 MG PO SCH (09:38)
[2017-06-12] MEDS: K-DUR TAB 20 MEQ PO SCH ×2 (09:38→20:31)
[2017-06-12] MEDS: ASPIRIN EC 81 MG PO SCH (09:39)
[2017-06-12] MEDS: PLAVIX PO SCH (09:39)
[2017-06-12] MEDS: XOPENEX 1.25 MG/3 ML NEBULE NEB SCH ×5 (09:43→20:44)
--- NOTE | 2017-06-12 10:49 | PCM.PROG ---
Progress Note - Progress Note for Day of Date: 06/12/17 - Subjective Subjective: IS ALERT AND ORIENTED ON MORNING ROUNDS. SHE IS SITTING UP ON THE SIDE OF BED WITH FAMILY AT BEDSIDE. SHE REPORTS FEELING SOME BETTER, BUT CONTINUES WITH SHORTNESS OF BREATH. SHE CONTINUES WITH RALES ON AUSCULTATION. VITALS THIS AM ARE 97.9-92-20-98%-144/69. CBC WNL EXCEPT HGB 11.0, HCT 33.9. CMP WNL EXCEPT POTASSIUM 3.3, CARBON DIOXIDE 36.2, BUN 20, CREATININE 1.16, GLUCOSE 134, CALCIUM 8.1, TOTAL PROTEIN 6.2, ALBUMIN 2.7. STAFF REPORTS THAT PATIENT REFUSED PM DOSE OF LASIX AGAIN. PATIENT AGREES TO TAKE THE PM DOSE AT 3PM. WE WILL CHANGE TIMES OF LASIX TO 7AM AND 3PM. WE WILL CONTINUE WITH CURRENT PLAN OF CARE AND PLAN TO RECHECK LABS AND FOLLOW UP WITH PATIENT IN AM WITH PLANS TO DISCHARGE IF STABLE. - Past Medical Family Social History Past Med/Fam/Surg Hx: No changes since H&P Allergies: Allergies acetaminophen [From Darvocet-N] Allergy (Verified 06/09/17 17:19) celecoxib [From Celebrex] Allergy (Verified 06/09/17 17:20) eptifibatide [From Integrilin] Allergy (Verified 06/09/17 17:19) propoxyphene [From Darvocet-N] Allergy (Verified 06/09/17 17:19) simvastatin [From Zocor] Allergy (Verified 06/09/17 17:20) - Review of Systems ROS: No change since H&P - Vital Signs and I&O's Vital Signs: Temperature 97.9 F Pulse Rate [Left Radial] 92 Pulse Rate 70 Respiratory Rate 20 Blood Pressure [Right Calf] 144/69 Blood Pressure [Right Arm] 105/64 Blood Pressure [Left Arm] 115/62 O2 Sat by Pulse Oximetry 95 Intake and Output: Intake & Output 06/09/17 06/10/17 06/11/17 06/12/17 11:59 11:59 11:59 11:59 Intake Total 20 1090 1060 Output Total 0 3 Balance 20 1087 1060 - Physical Exam Oriented: Normal. negative: Time, Person, Place, Not Oriented, Unable to test, Other Eyes: Normal. negative: Blurred Vision, Diplopia, Discharge, Pain, Redness, Photophobia, Other Ear: Normal. negative: Right, Left, Swelling, Ecchymosis, Hemotypanum, Abrasion , Laceration Nose: Normal. negative: Injected, Discharge, Blood, Other Throat: Normal. negative: Tonsillar Hypertrophy, Red, Exudate, Dry, Other Respiratory: Right, Left, Rales Cardiovascular: Tachycardia. negative: Normal, Bradycardia, Irregular, S3, S4, Systolic, Diastolic, Murmur, Edema, Other : Normal. negative: Dysuria, Hematuria, Frequency, Discharge, Testicular Pain , Bleeding, , Other Auscultation: Bowel Sounds: Normal. negative: Bruit, Absent, Increased, Decreased, High Pitched, Other Palpation: Normal Tenderness: Normal. negative: Diffuse, RUQ, RLQ, LUQ, LLQ, Epigastric, Periumbilical, Suprapubic, Mild, Moderate, Severe, Rebound, Guarding, Rigidity, Other Skin: Normal. negative: Decreased Turgur, Rash, Papular, Macular, Maculopapular , Vesicular, Pustular, Petechial, Red, Tender, Hot, Diaphoresis, Wound, Bruising , Ecchymosis, Other Musculoskeletal: Normal. negative: Right, Left, Shoulder, Clavicle, Arm, Elbow , Forearm, Wrist, Hand, Hip, Thigh, Knee, Leg, Ankle, Foot, Back:Thoracic, Back: Lumbar, Back:Midline, Back:Paraspinous, Pelvis, Swelling, Tender, Deformity, Pulse Deficit, Motor Deficit, Sensory Deficit, Instability, Crepitance Psychiatric: Normal. negative: Anxiety, Depression, Agitation, Other Mood Description: Calm. negative: Angry, Apathetic, Depressed, Fearful, Flat, Happy, Hostile, Sad, Suspicious, Withdrawn, Anxious, Appropriate, Labile Affect: Normal. negative: Angry, Anxious, Depressed, Flat, Hysterical, Quiet, Violent Speech Pattern: Clear, Appropriate - Laboratory and Diagnostics Result Diagrams: 06/12/17 04:25 06/12/17 04:25 Labs: Laboratory WBC 9.1 X10^3/uL (3.6-10.0) 06/12/17 04:25 RBC 3.93 X10^6/uL (3.5-5.4) 06/12/17 04:25 Hgb 11.0 g/dL (12.0-16.0) L 06/12/17 04:25 Hct 33.9 % (36.0-47.0) L 06/12/17 04:25 MCV 86.4 fL (80.0-100.0) 06/12/17 04:25 MCH 27.9 pg (27.0-34.0) 06/12/17 04:25 MCHC 32.3 g/dL (33.0-35.0) L 06/12/17 04:25 RDW 14.7 % (11.6-16.5) 06/12/17 04:25 Plt Count 144 X10^3/uL (150.0-450.0) L 06/12/17 04:25 MPV 10.6 fL (7.4-11.0) 06/12/17 04:25 Neut % 49.3 % (42.0-75.0) 06/12/17 04:25 Lymph % 36.3 % (21.0-51.0) 06/12/17 04:25 [place] % 11.4 % (0.0-13.0) 06/12/17 04:25 Eos % 2.6 % (0.9-2.9) 06/12/17 04:25 Baso % 0.4 % (0.2-1.0) 06/12/17 04:25 Neut # 4.5 x10^3/uL (2.2-4.8) 06/12/17 04:25 Lymph # 3.3 X10^3/uL (1.3-2.9) H 06/12/17 04:25 [place] # 1.0 x10^3/uL (0.3-0.8) H 06/12/17 04:25 Eos # 0.2 x10^3/uL (0.0-0.2) 06/12/17 04:25 Baso # 0.0 X10^3/uL (0.0-0.1) 06/12/17 04:25 Absolute Nucleated RBC 0.0 /100WBC 06/12/17 04:25 INR Target Range - 06/09/17 12:00 INR 1.05 (0.8-1.3) 06/09/17 12:00 D-Dimer 1040 ng/mL (0-400) H* 06/09/17 12:00 Sodium 143 mmol/L (136-145) 06/12/17 04:25 Corrected Sodium 144 mmol/L (136-145) 06/12/17 04:25 Potassium 3.3 mmol/L (3.5-5.1) L 06/12/17 04:25 Chloride 105 mmol/L (98-107) 06/12/17 04:25 Carbon Dioxide 36.2 mmol/L (21-32) H 06/12/17 04:25 BUN 20 mg/dL (7-18) H 06/12/17 04:25 Creatinine 1.16 mg/dL (0.55-1.02) H 06/12/17 04:25 Est GFR (MDRD) Af Amer 58 (>60) L 06/12/17 04:25 Est GFR (MDRD) Non-Af 48 (>60) L 06/12/17 04:25 Glucose 134 mg/dL (65-99) H 06/12/17 04:25 Calcium 8.1 mg/dL (8.5-10.1) L 06/12/17 04:25 Corrected Calcium 9.1 mg/dL (8.5-10.1) 06/12/17 04:25 Total Bilirubin 0.40 mg/dL (0.2-1.0) 06/12/17 04:25 AST 27 Units/L (15-37) 06/12/17 04:25 ALT 21 Units/L (12-78) 06/12/17 04:25 Alkaline Phosphatase 57 Units/L (46-116) 06/12/17 04:25 Creatine Kinase 28 Units/L (26-192) 06/09/17 12:00 CK-MB (CK-2) 1.3 ng/mL (0-4.0) 06/09/17 12:00 CK/CKMB % Calc 4.6 % (<4) 06/09/17 12:00 Troponin I 0.04 ng/mL (0-1.5) 06/09/17 12:00 B-Natriuretic Peptide 678 pg/mL (0-79) H* 06/11/17 04:41 Total Protein 6.2 g/dL (6.4-8.2) L 06/12/17 04:25 Albumin 2.7 g/dL (3.4-5.0) L 06/12/17 04:25 Globulin 3.5 g/dL (2.5-4.5) 06/12/17 04:25 Albumin/Globulin Ratio 0.8 Ratio (1.1-2.1) L 06/12/17 04:25 - Plan (1) Acute on chronic systolic (congestive) heart failure Status: Acute Plan: LASIX 40MG IV BID, DUONEB TX, CONTINUE TO MONITOR LABS AND CHEST XRAY (2) Pulmonary fibrosis Status: Chronic Plan: CONTINUE PREDNISONE, CONTINUE TO MONITOR (3) Hyperlipemia Status: Chronic Qualifiers: Hyperlipidemia type: mixed hyperlipidemia Qualified Code(s): E78.2 - Mixed hyperlipidemia Plan: CONTINUE TRICOR, CONTINUE TO MONITOR (4) CAD (coronary artery disease) Status: Chronic Qualifiers: Coronary Disease-Associated Artery/Lesion type: [place] artery [place] vs. transplanted heart: [place] heart Associated angina: angina presence unspecified Qualified Code(s): I25.10 - Atherosclerotic heart disease of [place] coronary artery without angina pectoris Plan: CONTINUE PLAVIX, CONTINUE TO MONITOR (5) Diabetes mellitus Status: Chronic Qualifiers: Diabetes mellitus type: D Diabetes mellitus complication status: with unspecified complications Diabetes mellitus complication detail: D Diabetic retinopathy severity: D Proliferative retinopathy type: P Diabetes mellitus macular edema: D Diabetes mellitus assisted insulin use: D Laterality: L Chronic kidney disease stage: C Plan: CONTINUE JANUVIA, CONTINUE TO MONITOR (6) GERD (gastroesophageal reflux disease) Status: Chronic Qualifiers: Esophagitis presence: esophagitis presence not specified Qualified Code(s) : K21.9 - Gastro-esophageal reflux disease without esophagitis Plan: CONTINUE PROTONIX, CONTINUE TO MONITOR
[2017-06-12] MEDS: SNACK - Diabetic Appropriate PO SCH (20:30)
[2017-06-12] MEDS: KLONOPIN TAB 1 MG PO SCH (20:31)
[2017-06-13] MEDS: NORCO 10/325 TAB PO PRN ×2 (05:55→13:44)
[2017-06-13] MEDS: LASIX IVP SCH (06:00)
[2017-06-13 06:30] LABS: BASOPHILS # (AUTO) 0.1 X10^3/uL (0.0-0.1); BASOPHILS % (AUTO) 0.6 % (0.2-1.0); EOSINOPHILS # (AUTO) 0.3 x10^3/uL (0.0-0.2); EOSINOPHILS % (AUTO) 3.1 % (0.9-2.9); HEMATOCRIT 35.5 % (36.0-47.0); HEMOGLOBIN 11.4 g/dL (12.0-16.0); LYMPHOCYTES # (AUTO) 3.3 X10^3/uL (1.3-2.9); MEAN CORPUSCULAR HEMOGLOBIN 27.9 pg (27.0-34.0); MEAN CORPUSCULAR HGB CONC 32.2 g/dL (33.0-35.0); MEAN CORPUSCULAR VOLUME 86.5 fL (80.0-100.0); MEAN PLATELET VOLUME 10.7 fL (7.4-11.0); MONOCYTES # (AUTO) 1.1 x10^3/uL (0.3-0.8); MONOCYTES % (AUTO) 11.1 % (0.0-13.0); NEUTROPHILS # (AUTO) 4.9 x10^3/uL (2.2-4.8); NEUTROPHILS % (AUTO) 51.2 % (42.0-75.0); PLATELET COUNT 150 X10^3/uL (150.0-450.0); RED CELL DISTRIBUTION WIDTH 14.8 % (11.6-16.5); WHITE BLOOD COUNT 9.7 X10^3/uL (3.6-10.0)
[2017-06-13 06:40] LABS: ALANINE AMINOTRANSFERASE 21 Units/L (12-78); ALBUMIN 2.8 g/dL (3.4-5.0); ALKALINE PHOSPHATASE 62 Units/L (46-116); ASPARTATE AMINO TRANSFERASE 31 Units/L (15-37); BLOOD UREA NITROGEN 18 mg/dL (7-18); CALCIUM 8.4 mg/dL (8.5-10.1); CARBON DIOXIDE 34.5 mmol/L (21-32); CHLORIDE 102 mmol/L (98-107); COR CA(FOR HYPOALB) 9.4 mg/dL (8.5-10.1); COR NA(FOR HYPERGLY) 144 mmol/L (136-145); CREATININE 1.11 mg/dL (0.55-1.02); GLUCOSE 126 mg/dL (65-99); SODIUM 143 mmol/L (136-145); TOTAL PROTEIN 6.5 g/dL (6.4-8.2); eGFR BLACK RACES > 60 (>60); eGFR NON BLACK RACES 51 (>60)
--- NOTE | 2017-06-13 08:40 | RAD ---
CHEST ONE VIEW CLINICAL HISTORY: Shortness of breath COMPARISON: June 12, 2017 FINDINGS: Stable enlarged cardiac silhouette. Unchanged left-sided AICD Mild to moderate pulmonary edema with cephalization of vascular flow as before. Unchanged osseous structures Improved aeration in the right lung base/costophrenic angle IMPRESSION: Improved aeration in the right lung base/costophrenic angle. Otherwise remainder of exam is similar to prior with continued demonstration of mild to moderate pulmonary edema. Reported By:
[2017-06-13] MEDS: XOPENEX 1.25 MG/3 ML NEBULE NEB SCH ×2 (09:17→12:26)
[2017-06-13] MEDS: ASPIRIN EC 81 MG PO SCH (09:23)
[2017-06-13] MEDS: JANUVIA PO SCH (09:23)
[2017-06-13] MEDS: PROTONIX TAB 40 MG PO SCH (09:23)
[2017-06-13] MEDS: TRICOR TAB 145 MG PO SCH (09:23)
[2017-06-13] MEDS: K-DUR TAB 20 MEQ PO SCH (09:23)
[2017-06-13] MEDS: PREDNISONE TAB 10 MG PO SCH (09:23)
[2017-06-13] MEDS: PLAVIX PO SCH (09:24)
[2017-06-13 13:48] VITALS: BP 118/66
== END 2017-06-13 15:50 | disposition home or self-care (01) | DRG 293 ==
LOC: ER 11:13 → MED/SURG 13:50
PROVIDERS: ADMIT Internal Medicine; ATTEND Internal Medicine
DX: I50.43 Acute on chronic combined systolic (congestive) and diastolic (congestive) heart failure (principal); R06.02 Shortness of breath; R06.09 Other forms of dyspnea; Z66 Do not resuscitate; R94.31 Abnormal electrocardiogram [ECG] [EKG]; M54.2 Cervicalgia; J84.10 Pulmonary fibrosis, unspecified; R60.0 Localized edema; I25.5 Ischemic cardiomyopathy; I51.7 Cardiomegaly; E78.2 Mixed hyperlipidemia; I25.10 Atherosclerotic heart disease of native coronary artery without angina pectoris; E11.65 Type 2 diabetes mellitus with hyperglycemia; K21.9 Gastro-esophageal reflux disease without esophagitis; Z79.01 Long term (current) use of anticoagulants
CPT/HCPCS: 36415; 71010; 71020; 80053; 82550; 82553; 83880; 84484; 85025; 85378; 85610; 93005; 94640; 94660; 94760; 96365; 96367; 96374; 99238; 99284; A4216; A4222; A4618; A7030; J1815; J1940; J2270; J2930; J7506; J7620

== ENCOUNTER 2017-07-06 14:13 | Emergency (ER) | payer OTHER, MEDICAID ==
[2017-07-06 14:31] VITALS: BP 101/68; BMI 29.2
--- NOTE | 2017-07-06 15:46 | DR.GENAD ---
HPI - PCP Primary Care Physician: YUAN - Complaint/Symptoms Chief Complaint Doctors Comments: Patient has been weak since this morning. Denies nausea, vomiting or diarrhea. She is a Hospice patient. There is a statement as to patient having altered mental status. Chief Complaint:: " THE POWER HAS BEEN OUT FOR SEVERAL HOURS AT HER HOUSE AND SINCE THEN SHE HAS NOT ACTED RIGHT. I DON'T KNOW IF THERE WAS NO AIR OR WHAT" Self Treatment fo Chief Complaint: NONE - Source History Provided: Family Member - Mode of Arrival Mode of Arrival: Wheelchair - Timing Onset of Chief Complaint: 07/06/17 PMH - PMH Past Medical History: Yes Past Medical History: Anxiety, CHF, COPD Past Medical History Comment: PT IS A HOSPICE PT Past Surgical History: Yes Surgical History: Angioplasty/Stents, Carotid Endarterectomy, Hysterectomy - Family History History of Family Medical Conditions: Yes Family Medical History: Diabetes Mellitus, [place], Heart Failure - Social History Does patient currently use any type of tobacco product: No Have you used tobacco products in the last 12 months: No Type of Tobacco Use: None Does any household member use tobacco: No Alcohol Use: None Do you use any recreational Drugs:: No Lives With: Family Lives Where: Home - infectious screening In the last 2 months have you had wt loss of >10#?: NO Have you had fever, night sweats or hemotysis?: No Have you traveled outside the country in the last 6 months?: No ROS - Review of Systems Eyes: No Symptoms Reported ENTM: No Symptoms Reported Respiratoy: No Symptoms Reported Cardiovascular: No Symptoms Reported Gastrointestinal/Abdominal: No Symptoms Reported Genitourinary: No Symptoms Reported Neurological: No Symptoms Reported Musculoskeletal: No Symptoms Reported Integumentary: No Symptoms Reported Hematologic/Lymphatic: No Symptoms Reported Endocrine: No Symptoms Reported Psychiatric: No Symptoms Reported All Other Systems: Reviewed and Negative PE - Vital Signs Vitals: Temperature 97.7 F Pulse Rate 87 Respiratory Rate 20 Blood Pressure [Right Calf] 144/69 Blood Pressure [Right Arm] 90/63 Blood Pressure [Left Arm] 118/66 Blood Pressure 101/68 O2 Sat by Pulse Oximetry 96 - General General Appearance: Alert - Head Head Exam: Normal Inspection, Atraumatic - Eyes Eye exam: Normal Appearance, PERRL, EOMI - ENT ENT Exam: Normal Exam External Ear Exam: Normal External Inspection TM/Canal Exam: Bilateral Normal Nose Exam: Normal Nose Exam Mouth Exam: Normal Inspection Throat Exam: Normal Inspection - Neck Neck Exam: Normal Inspection - Chest Chest Inspection: Normal Inspection - Respiratory Respiratory Exam: Normal Lung Sounds Bilat Respiratory Exam: Bilateral Clear to Auscultation - Cardiovascular Cardiovascular Exam: Regular Rate, Normal Rhythm - Abdominal Exam Abdominal Exam: Normal Inspection Abdominal Tenderness: negative: RUQ, RLQ, LUQ, LLQ, Epigastrium, Suprapubic, Diffuse, Mild, Moderate, Severe, Other - Extremities Extremities Exam: Normal Inspection - Back Back Exam: Normal Inspection, Full ROM - Neurologic Neurological Exam: Alert, Oriented X3, CN II-XII Intact - Psychiatric Psychiatric Exam: Normal Affect, Normal Mood ROR - Labs Reviewed Result Diagrams: 07/06/17 15:59 07/06/17 15:59 Laboratory: WBC 11.9 X10^3/uL (3.6-10.0) H 07/06/17 15:59 RBC 4.27 X10^6/uL (3.5-5.4) 07/06/17 15:59 Hgb 11.6 g/dL (12.0-16.0) L 07/06/17 15:59 Hct 36.2 % (36.0-47.0) 07/06/17 15:59 MCV 84.9 fL (80.0-100.0) 07/06/17 15:59 MCH 27.2 pg (27.0-34.0) 07/06/17 15:59 MCHC 32.0 g/dL (33.0-35.0) L 07/06/17 15:59 RDW 15.1 % (11.6-16.5) 07/06/17 15:59 Plt Count 185 X10^3/uL (150.0-450.0) 07/06/17 15:59 MPV 9.7 fL (7.4-11.0) 07/06/17 15:59 Neut % 82.4 % (42.0-75.0) H 07/06/17 15:59 Lymph % 9.3 % (21.0-51.0) L 07/06/17 15:59 [place] % 6.0 % (0.0-13.0) 07/06/17 15:59 Eos % 1.5 % (0.9-2.9) 07/06/17 15:59 Baso % 0.8 % (0.2-1.0) 07/06/17 15:59 Neut # 9.8 x10^3/uL (2.2-4.8) H 07/06/17 15:59 Lymph # 1.1 X10^3/uL (1.3-2.9) L 07/06/17 15:59 [place] # 0.7 x10^3/uL (0.3-0.8) 07/06/17 15:59 Eos # 0.2 x10^3/uL (0.0-0.2) 07/06/17 15:59 Baso # 0.1 X10^3/uL (0.0-0.1) 07/06/17 15:59 Absolute Nucleated RBC 0.1 /100WBC 07/06/17 15:59 Sodium 140 mmol/L (136-145) 07/06/17 15:59 Corrected Sodium 141 mmol/L (136-145) 07/06/17 15:59 Potassium 3.9 mmol/L (3.5-5.1) 07/06/17 15:59 Chloride 100 mmol/L (98-107) 07/06/17 15:59 Carbon Dioxide 36.4 mmol/L (21-32) H 07/06/17 15:59 BUN 25 mg/dL (7-18) H 07/06/17 15:59 Creatinine 1.40 mg/dL (0.55-1.02) H 07/06/17 15:59 Est GFR (MDRD) Af Amer 47 (>60) L 07/06/17 15:59 Est GFR (MDRD) Non-Af 39 (>60) L 07/06/17 15:59 Glucose 126 mg/dL (65-99) H 07/06/17 15:59 Calcium 9.0 mg/dL (8.5-10.1) 07/06/17 15:59 Corrected Calcium 9.7 mg/dL (8.5-10.1) 07/06/17 15:59 Total Bilirubin 0.80 mg/dL (0.2-1.0) 07/06/17 15:59 AST 31 Units/L (15-37) 07/06/17 15:59 ALT 19 Units/L (12-78) 07/06/17 15:59 Alkaline Phosphatase 51 Units/L (46-116) 07/06/17 15:59 Creatine Kinase 22 Units/L (26-192) L 07/06/17 15:59 CK-MB (CK-2) < 1.0 ng/mL (0-4.0) 07/06/17 15:59 CK/CKMB % Calc 4.6 % (<4) 07/06/17 15:59 Troponin I 0.06 ng/mL (0-1.5) 07/06/17 15:59 Total Protein 7.3 g/dL (6.4-8.2) 07/06/17 15:59 Albumin 3.1 g/dL (3.4-5.0) L 07/06/17 15:59 Globulin 4.2 g/dL (2.5-4.5) 07/06/17 15:59 Albumin/Globulin Ratio 0.7 Ratio (1.1-2.1) L 07/06/17 15:59 Specimen Type Clean catch urine 07/06/17 15:45 Urine Color Yellow (YELLOW) 07/06/17 15:45 Urine Appearance Clear (CLEAR) 07/06/17 15:45 Urine pH 6.0 (5.0 - 8.0) 07/06/17 15:45 Ur Specific [place] 1.015 (1.000-1.030) 07/06/17 15:45 Urine Protein Negative (NEGATIVE) 07/06/17 15:45 Urine Glucose (UA) Negative (NEGATIVE) 07/06/17 15:45 Urine Ketones Negative (NEGATIVE) 07/06/17 15:45 Urine Occult Blood 1+ (NEGATIVE) 07/06/17 15:45 Urine Nitrite Negative (NEGATIVE) 07/06/17 15:45 Urine Bilirubin Negative (NEGATIVE) 07/06/17 15:45 Urine Urobilinogen Normal (NORMAL) 07/06/17 15:45 Ur Leukocyte Esterase 3+ (NEGATIVE) 07/06/17 15:45 Urine RBC 3-6 /HPF (NEGATIVE) 07/06/17 15:45 Urine WBC 5-15 /HPF (NEGATIVE) 07/06/17 15:45 Ur Squamous Epith Cells Few /HPF (NEGATIVE) 07/06/17 15:45 Urine Bacteria Trace /HPF (NEGATIVE) 07/06/17 15:45 Urine Trichomonas Few /HPF (NEGATIVE) 07/06/17 15:45 Urine Yeast Few /HPF (NEGATIVE) 07/06/17 15:45 Ur Culture Indicated? Yes/culture set up 07/06/17 15:45 - XRAY XRAY Interpreted by: Radiologist (There is stable enlargement of the cardiac silhouette with worsening pulmonary vascular congestion and interstitial edema. There are also small bilateral pleural effusions. No definite focal infiltrate or pneumothorax is identified.) - Diagnosis Discharge Problem: Congestive heart failure Qualifiers: Congestive heart failure type: unspecified congestive heart failure type Congestive heart failure chronicity: acute on chronic Qualified Code(s): I50.9 - Heart failure, unspecified - Discharge Plan Condition: Stable Prescriptions: Amoxicillin & Pot Clavulanate [AUGMENTIN TAB 875 mg/125 mg *] 1 tab PO BID #20 tab - Follow ups/Referrals Follow ups/Referrals: dEwin Thompson [Primary Care Provider] - 3 days - Instructions
[2017-07-06 15:55] LABS: BILIRUBIN,URINE NEGATIVE (NEGATIVE); BLOOD/HEMOGLOBIN,URINE 1+ (NEGATIVE); GLUCOSE, URINE NEGATIVE (NEGATIVE); KETONES,URINE NEGATIVE (NEGATIVE); LEUKOCYTE ESTERASE ,URINE 3+ (NEGATIVE); NITRITES,URINE NEGATIVE (NEGATIVE); PROTEIN,URINE NEGATIVE (NEGATIVE); UROBILINOGEN,URINE NORMAL (NORMAL)
[2017-07-06 16:05] LABS: BASOPHILS # (AUTO) 0.1 X10^3/uL (0.0-0.1); BASOPHILS % (AUTO) 0.8 % (0.2-1.0); EOSINOPHILS # (AUTO) 0.2 x10^3/uL (0.0-0.2); EOSINOPHILS % (AUTO) 1.5 % (0.9-2.9); HEMATOCRIT 36.2 % (36.0-47.0); HEMOGLOBIN 11.6 g/dL (12.0-16.0); LYMPHOCYTES # (AUTO) 1.1 X10^3/uL (1.3-2.9); LYMPHOCYTES % (AUTO) 9.3 % (21.0-51.0); MEAN CORPUSCULAR HEMOGLOBIN 27.2 pg (27.0-34.0); MEAN CORPUSCULAR VOLUME 84.9 fL (80.0-100.0); MEAN PLATELET VOLUME 9.7 fL (7.4-11.0); MONOCYTES # (AUTO) 0.7 x10^3/uL (0.3-0.8); NEUTROPHILS # (AUTO) 9.8 x10^3/uL (2.2-4.8); NEUTROPHILS % (AUTO) 82.4 % (42.0-75.0); PLATELET COUNT 185 X10^3/uL (150.0-450.0); RED BLOOD COUNT 4.27 X10^6/uL (3.5-5.4); RED CELL DISTRIBUTION WIDTH 15.1 % (11.6-16.5); WHITE BLOOD COUNT 11.9 X10^3/uL (3.6-10.0)
[2017-07-06 16:13] LABS: APPEARANCE,URINE CLEAR (CLEAR); COLOR,URINE YELLOW (YELLOW)
[2017-07-06 16:14] LABS: BACTERIA,URINE TRACE /HPF (NEGATIVE); SQUAMOUS EPITHELIAL CELL,UR FEW /HPF (NEGATIVE); TRICHOMONAS,URINE FEW /HPF (NEGATIVE); YEAST,URINE FEW /HPF (NEGATIVE)
[2017-07-06 16:28] LABS: BLOOD UREA NITROGEN 25 mg/dL (7-18); CARBON DIOXIDE 36.4 mmol/L (21-32); CHLORIDE 100 mmol/L (98-107); COR NA(FOR HYPERGLY) 141 mmol/L (136-145); SODIUM 140 mmol/L (136-145); TROPONIN I 0.06 ng/mL (0-1.5); eGFR BLACK RACES 47 (>60); eGFR NON BLACK RACES 39 (>60)
[2017-07-06 16:33] LABS: ALANINE AMINOTRANSFERASE 19 Units/L (12-78); ALBUMIN 3.1 g/dL (3.4-5.0); ALKALINE PHOSPHATASE 51 Units/L (46-116); ASPARTATE AMINO TRANSFERASE 31 Units/L (15-37); CKMB % 4.6 % (<4); COR CA(FOR HYPOALB) 9.7 mg/dL (8.5-10.1); CREATINE KINASE 22 Units/L (26-192); CREATINE KINASE MB < 1.0 ng/mL (0-4.0); TOTAL PROTEIN 7.3 g/dL (6.4-8.2)
[2017-07-06] MEDS ORDERED: ROCEPHIN VIAL 1 GM IM ONE (16:48)
--- NOTE | 2017-07-06 16:57 | RAD ---
Chest, one view Indication: Weakness Comparison: June 13, 2017 Findings: There is stable enlargement of the cardiac silhouette with worsening pulmonary vascular con gestion and interstitial edema. There are also small bilateral pleural effusions. No definite focal i nfiltrate or pneumothorax is identified. Left-sided AICD again noted. Impression: Imaging findings compatible with decompensated congestive heart failure, as detailed above. Reported By:
[2017-07-06] MEDS ORDERED: XYLOCAINE 1 % (PLAIN) ONE (17:03)
[2017-07-06] MEDS ORDERED: ROCEPHIN VIAL 1 GM ONE (17:03)
== END 2017-07-06 17:53 | disposition home or self-care (01) ==
LOC: ER 14:13
DX: I50.9 Heart failure, unspecified (principal)
CPT/HCPCS: 36415; 71010; 80053; 81001; 82550; 82553; 84484; 85025; 87086; 93005; 93010; 96372; 99283; J0696; J2001